=== PATIENT | male | born 1970 | race Caucasian/White ===

== ENCOUNTER 2019-02-13 10:39 | Observation (INO) ==
[2019-02-13] MEDS ORDERED: Aspirin 81 MG TAB.CHEW PO SCH (10:56)
--- NOTE | 2019-02-13 10:57 | Emergency Department Note ---
Disposition Clinical Impression: Atypical chest pain Disposition: Admitted As Inpatient Time of Disposition: 21:20 Chest Pain HPI - General Chief Complaint: ED Chest Pain Stated Complaint: Chest pain Time Seen by Provider: 02/13/19 10:45 Source: patient Mode of arrival: ambulatory Limitations: no limitations Vital Signs Reviewed: Yes Nursing Notes Reviewed: Yes - History of Present Illness HPI Narrative: 48-year-old male past medical history of coronary artery disease with stent placement approximately 5 years ago. Also history of diabetes, on lisinopril, metoprolol and Plavix presenting for one day history of sudden onset chest pain. Patient states he woke up this morning with 8 out of 10 midsternal squeezing chest pain with radiation into his jaw and teeth. Patient states he took 81 mg of aspirin this morning but has not taken any other medications for his symptoms. Pt complaint: chest pain Onset (ago): hour(s) Duration: constant, gradually worsening Onset: during rest Severity: severe Severity scale (1-10): 8 Quality: other ("Squeezing") Pain Radiation: jaw/teeth Improves with: nothing Worsens with: nothing Treatments prior to arrival chest pain: aspirin - Related Data Home Medications Medication Instructions Recorded Confirmed Aspirin [Lo-Dose Aspirin EC] 81 mg PO DAILY 09/21/17 02/13/19 Atorvastatin [Lipitor] 40 mg PO HS 02/13/19 02/13/19 Clopidogrel [Plavix] 75 mg PO DAILY 02/13/19 02/13/19 Gabapentin [Neurontin] 300 mg PO BID 02/13/19 02/13/19 Lisinopril [Zestril] 5 mg PO DAILY 02/13/19 02/13/19 Metformin HCl 1,000 mg PO BID 02/13/19 02/13/19 Metoprolol [Lopressor] 25 mg PO BID 02/13/19 02/13/19 PARoxetine HCl [Paroxetine HCl] 30 mg PO DAILY 02/13/19 02/13/19 Allergies Allergy/AdvReac Type Severity Reaction Status Date / Time No Known Allergies Allergy Verified 09/21/17 17:15 Review of Systems: Constitutional: Denies: fever, chills Cardiovascular: Admits to chest pain with radiation to his jaw/teeth Respiratory: Denies: dyspnea Gastrointestinal: Denies: abdominal pain, nausea, vomiting, diarrhea, constipation, hematemesis, melena, hematochezia Genitourinary: Denies: hematuria Musculoskeletal: Denies: back pain, neck pain Neurological: Denies: headache, weakness, numbness, paresthesias All systems ED: reviewed and negative except as stated. Review of Systems: As Per HPI Chest Pain PMH - Past Medical History Medical history: Reports: hypertension, other - Social History Smoking Status: Never smoker Alcohol use: Reports: none Physical Exam Constitutional: No acute distress, [id number], engaged to conversation, speech is fluid, answers questions appropriately Neuro: GCS 15, no overt focal neurological deficits Head: Atraumatic, normocephalic Eyes: Pupils equal, round and reactive to light, no scleral icterus, no conjunctival injection Neck: Trachea midline without deviation. Anterior neck is supple without swelling. *Chest: Symmetric chest wall rise *Heart: Cardiac rhythm and rate are regular with S1 and S2 , no S3 or S4 appreciated, no murmurs, gallops, rubs, or clicks. *Lungs: Lungs are clear to auscultation bilaterally, without accessory muscle use or prolonged expiratory phase. No wheezes, rhonchi or stridor appreciated. Abdomen: Abdomen is flat, soft to palpation, normal bowel sounds. No abdominal bruit auscultated. Non-distended, non-rigid, no organomegaly, no ascites appreciated. No pulsatile mass, no tenderness or guarding to palpation in all four quadrants, no rebound Extremities: Normal capillary refill without evidence of pedal edema, joint swelling or erythema. Pulses/motor intact in all 4 extremities. Psychiatric exam: Patient displays a normal affect and mood for the environment. No overt signs of hallucination. Integumentary: warm, dry, intact, normal color. No rash, cyanosis, diaphoresis, erythema, or pallor - General Limitations: no limitations General appearance: alert, in no apparent distress Course Course Narrative: Concern for acute coronary syndrome CBC, BMP, troponin EKG/old EKG Chest x-ray portable Aspirin and nitroglycerin for management of patient's symptoms and cardio prophylaxis We will call cardiology regarding EKG changes noted from prior. - Reevaluation(s) Reevaluation #1: Spoke with Dr. Alcantar from [facility] who recommended starting ACS heparin drip as well as nitro drip if needed for management of patient pain. Dr. Alcantar says currently not candidate for emergent heart catheterization. Admission to hospitalist medicine service for further evaluation and management of potential ACS. Vital Signs Temperature 97.7 F 02/13/19 10:41 Pulse Rate 121 02/13/19 10:41 Respiratory Rate 22 02/13/19 10:41 Blood Pressure 143/102 02/13/19 10:41 O2 Sat by Pulse Oximetry 98 02/13/19 10:41 Temperature 98.0 F 02/13/19 19:08 Pulse Rate 81 02/13/19 19:08 Respiratory Rate 20 02/13/19 19:08 Blood Pressure 117/80 02/13/19 19:08 O2 Sat by Pulse Oximetry 96 02/13/19 19:08 Oxygen Delivery Oxygen Delivery Room Air Chest Pain - MDM Narrative Medical decision making narrative: Patient states positive relief of symptoms as management here in the ED. Troponin within normal ranges Heart score 7 Laboratory and imaging otherwise unremarkable for acute pathology. Patient will be admitted hospitals medicine service for further evaluation and management of potential ACS Cardiology consulted and is following. - Lab Data Lab results reviewed: Yes I reviewed the patient's lab results. Result diagrams: 02/13/19 11:12 02/13/19 11:12 Lab Results 02/13/19 02/13/19 02/13/19 Range/Units 11:12 11:12 11:12 WBC 4.8 (4.3-11.1) K/mcL RBC 5.12 (4.19-5.50) M/mcL Hgb 14.3 (12.9-16.9) g/dL Hct 43.1 (37.5-50.1) % MCV 84.2 (83.0-100.0) fL MCH 27.9 L (28.0-33.3) pg MCHC 33.2 (31.6-35.5) g/dL RDW 12.3 (11.5-14.5) % Plt Count 242 (140-400) K/mcL MPV 9.1 L (9.4-12.4) fL Immature Gran % 0.4 (0-4) % Seg Neutrophils % 58.8 % Lymphocytes % 31.3 % Monocytes % 7.9 % Eosinophils % 1.2 % Basophils % 0.4 % Neutrophils # 2.8 (1.6-8.9) K/mcL Lymphocytes # 1.5 (0.6-4.6) K/mcL Monocytes # 0.4 (0.0-1.3) K/mcL Eosinophils # 0.1 (0.0-0.6) K/mcL Basophils # 0.0 (0.0-0.2) K/mcL PT 10.5 (9.4-12.1) Seconds INR 0.9 APTT 30.0 (26.0-36.0) Seconds Heparin Anti-Xa, Unfract 0.03 L (0.30-0.70) IU/mL Sodium 135 L (136-145) mEq/L Potassium 4.1 (3.5-5.1) mEq/L Chloride 99 (98-107) mEq/L Carbon Dioxide 25 (23-29) mEq/L BUN 20 (6-20) mg/dL Creatinine 1.05 (0.70-1.30) mg/dL Est GFR ( Amer) > 60 (> 60) Est GFR (Non-Af Amer) > 60 (> 60) BUN/Creatinine Ratio 19 (6-26) Glucose 204 H (70-105) mg/dL Calculated Osmolality 288 (280-300) Calcium 9.8 (8.6-10.3) mg/dL Troponin I < 0.03 (< 0.04) ng/mL - EKG Data EKG attestation: Yes I reviewed and interpreted this EKG. EKG results narrative: Patient EKG shows a sinus rhythm with a ventricular 119 bpm, AR interval of less than 200 ms, QR scientologist of 82 ms, QT/QTc interval 298/368 ms respectively. There is notable ST segment elevation of approximately 1 mL in aVR with reciprocal depressions noted in the lateral leads V3 4 through V6. There are no abnormal T-wave inversions, or pathologic Q waves. This EKG is significantly changed with the changes noted above from prior EKG performed on 09/13/2013. We will call cardiology for further recommendations at this time. Repeat EKG shows significantly improved ST segment elevation in aVR, ST segment depression in V4 through V6 is now not seen. There is a sinus rhythm evident with a heart rate of 80 bpm, AR interval of 184 ms, QRS duration 91 ms, QT/QTc interval 339/391 ms respectively. There are no ST segment elevations, depressions, pathologic Q waves, abnormal T-wave inversions, or any other signs of acute ischemic change. This EKG is much improved from prior EKG performed on the same date. Heart Score - Score History: Highly Suspicious EKG: Significant ST-Depression Age: 45-65 Risk Factors: Equal/Greater than 3 risk factor or history of atherosclerotic disease Troponin: Less than normal limit HEART Score Total: 7 Attestation Statement - Attestation Attestation: I, Armen Loza, examined this patient and my medical decision-making was reviewed with the MIXER RUNNER/PA/Advanced Practice Nurse/Resident Physician. I agree with the documented findings, disposition and treatment plan as described except to the extent set forth below. 48-year-old male presents emergency Department with concerns of acute onset ch est pain. Patient states symptoms started after waking, it is a dull aching pain in the left parasternal area which radiates to the jaw and left upper extremity. It is associated with shortness of breath and diaphoresis. He has a history of previous cardiac disease and has stents in place. Patient EKG did not show evidence of STEMI however it did have mild ST elevation in aVR with ST depressions in V4, V5, V6. We called the stonemason who looked at the EKGs and recommended that this was not a candidate for the catheter lab immediately. Patient will be started on heparin and admitted to the hospital for further care and evaluation.
[2019-02-13] MEDS ORDERED: *HR* Heparin 5,000 UNIT/ML VIAL IVP PRN ×2 (11:06)
[2019-02-13] MEDS ORDERED: *HR* Heparin 5,000 UNIT/ML VIAL IVP ONE (11:06)
[2019-02-13] MEDS ORDERED: Heparin 25,000 UNIT/250 ML D5W 25,000 UNIT/250 ML IV.SOLN IVC SCH (11:15)
[2019-02-13] MEDS: Nitroglycerin 0.4 MG TAB.SUBL SL PRN ×2 (11:24→11:30)
[2019-02-13 11:30] LABS: Basophils % 0.4 %; Eosinophils # 0.1 K/mcL (0.0-0.6); Eosinophils % 1.2 %; Hematocrit 43.1 % (37.5-50.1); Hemoglobin 14.3 g/dL (12.9-16.9); Immature Granulocytes % 0.4 % (0-4); Lymphocytes # 1.5 K/mcL (0.6-4.6); Lymphocytes % 31.3 %; Mean Corpuscular HGB Conc 33.2 g/dL (31.6-35.5); Mean Corpuscular Hemoglobin 27.9 pg (28.0-33.3); Mean Corpuscular Volume 84.2 fL (83.0-100.0); Mean Platelet Volume 9.1 fL (9.4-12.4); Monocytes # 0.4 K/mcL (0.0-1.3); Monocytes % 7.9 %; Neutrophils # 2.8 K/mcL (1.6-8.9); Platelet Count 242 K/mcL (140-400); Red Blood Count 5.12 M/mcL (4.19-5.50); Red Cell Distribution Width 12.3 % (11.5-14.5); Segmented Neutrophils % 58.8 %
[2019-02-13 11:38] LABS: INR 0.9; Prothrombin Time 10.5 Seconds (9.4-12.1)
[2019-02-13 11:39] LABS: Heparin anti-factor XA UFH 0.03 IU/mL (0.30-0.70)
[2019-02-13 11:51] LABS: BUN/Creatinine Ratio 19 (6-26); Blood Urea Nitrogen 20 mg/dL (6-20); Calcium 9.8 mg/dL (8.6-10.3); Carbon Dioxide 25 mEq/L (23-29); Chloride 99 mEq/L (98-107); Glucose 204 mg/dL (70-105); Osmolality,Calculated 288 (280-300); Potassium 4.1 mEq/L (3.5-5.1); Sodium 135 mEq/L (136-145); Troponin I < 0.03 ng/mL (< 0.04); eGFR For Non-African Americans > 60 (> 60)
--- NOTE | 2019-02-13 13:04 | Electrocardiograph Report ---
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
--- NOTE | 2019-02-13 14:47 | Cardiology Consult Note ---
Date of Encounter: 02/13/19 Time of Encounter: 02:10 Assessment and Plan (1) Chest pain Current Visit: Yes Status: Acute -Patient presents to the ED with the retrosternal pressure-like chest pain radiating to his jaw area -Patient has risk factors that predisposes him to CHD like diabetes, hypertension, hyperlipidemia, prior history of for stent placement about 4 years ago -Initial Troponin was negative. Serial troponins are pending. -Patient's initial EKG showed some ST -T changes aVR with reciprocal ST depression in V3 to V6 but then repeat EKG showed resolution of all the changes. There was no evidence of pathological Q waves or T-wave inversion. - Patient endorses no chest pain on my examination PLAN: -Sublingual nitro PRN for chest pain -Trend troponins -Continue heparin drip for now . - Echocardigram to rule out wall motion/valvular abnormalities -Patient has not had a stress test in the last 4 years therefore will get one . -Further management contingent upon the outcome of his stress test Qualifiers: Qualified Code(s): R07.9 - Chest pain, unspecified (2) CAD (coronary artery disease) Current Visit: Yes Status: Acute -Patient history of CAD s/p stent placement 4 years ago -Continue on ASA, beta blockers and statins Qualifiers: Qualified Code(s): I25.10 - Atherosclerotic heart disease of [place] coronary artery without angina pectoris (3) HTN (hypertension) Current Visit: Yes Status: Acute Patient has a history of hypertension Continue home medication metoprolol and lisinopril. Qualifiers: Qualified Code(s): I10 - Essential (primary) hypertension Discussion w patient/family: The assessment and plan as outlined above was discussed with the patient and/or family members who expressed understanding and agreement. All questions were answered. Thank you for involving us in the care of your patient. Please call with any questions. History of Present Illness Consult date: 02/13/19 History of present illness: Mr. Escalante is a 48 year old male with a past medical history of diabetes, hypertension, hyperlipidemia, CAD status post stent 4 years ago who presents to the ED with chest pain. Patient endorses retrosternal non- positional pressure- like chest pain radiating to his jaw area accompanied with one episode of vomiting, but he denies diaphoresis and nausea. He took 81 mg aspirin at home which show provided him some relief. He went out of the home to run some errands and was still having some chest pain which was progressively increasing therefore decided to go to the ED. Patient has a family history of MIs on his mom's side. Initial workup in the ED showed patient's initial troponin was negative. Patient was hemodynamically stable with blood pressure 143/102 (patient said that he had not taken his morning BP medications today). EKG showed ST segment elevation of 1 mm in aVR with respiratory depression in lateral leads V3 V4 and V6 without any T-wave inversion or pathological Q waves. EKG showed significantly improved ST-T segment elevation in aVR with resolution of ST segment depression in V4 to V6. He was started on ACS heparin drip and nitro drip and was sent to the floor for further management. Past Med Surg Social Fam HX - Past Medical History Medical history: hypertension, other - Social History Smoking Status: Never smoker Smokeless Tobacco Status: No Alcohol use: none Medications and Allergies Aspirin [Lo-Dose Aspirin EC] 81 mg PO DAILY 09/21/17 [History] Atorvastatin [Lipitor] 40 mg PO HS 02/13/19 [History] Clopidogrel [Plavix] 75 mg PO DAILY 02/13/19 [History] Gabapentin [Neurontin] 300 mg PO BID 02/13/19 [History] Lisinopril [Zestril] 5 mg PO DAILY 02/13/19 [History] Metformin HCl 1,000 mg PO BID 02/13/19 [History] Metoprolol [Lopressor] 25 mg PO BID 02/13/19 [History] PARoxetine HCl [Paroxetine HCl] 30 mg PO DAILY 02/13/19 [History] Allergy/AdvReac Type Severity Reaction Status Date / Time No Known Allergies Allergy Verified 09/21/17 17:15 All Systems Review: The remainder of the systems were reviewed and are negative - Constitutional Constitutional: no chills, no fever(s) - Cardiovascular Cardiovascular: chest pain at rest - Respiratory Respiratory: no dyspnea - Gastrointestinal Gastrointestinal: no abdominal pain Physical Examination Vital Signs, Last 4 Hours Pulse Resp BP Pulse Ox 02/13/19 14:16 17 114/71 02/13/19 11:03 93 139/100 97 Other: Gen.: Vitals noted. No acute distress. Alert, awake and oriented * [address], [address], and time, well developed, well-nourished resting comfortably in bed. Plea liza. HEENT: oropharynx clear, Normocephalic, atraumatic, MMM Neck: supple, no JVD, no lymphadenopathy, no carotid bruit. Cardiac: RRR, no murmur, +S1/S2, No BLE edema, PMI non-displaced Pulmonary: CTA bilaterally, no wheezes, rales or rhonchi, equal chest expansion, unlabored breathing Abdomen: soft, nontender, BS noted, no guarding non- distended. No organomegaly, no pulsatile masses, Skin: warm and dry, no visible lesions. Feels warm, clammy, no rashes, no lesions, no erythema MSK: ROM not assessed. no joint swelling noted, gait not assessed while in bed. Non tender calf or clubbing, no cyanosis/clubbing/ or edema Neuro: A&O, moves all extremities, no focal deficits, sensation intact Psych: Appropriate mood and behavior, normal speech Results 02/13/19 11:12 02/13/19 11:12 Lab Results 02/13/19 02/13/19 02/13/19 11:12 11:12 11:12 WBC 4.8 Hgb 14.3 Hct 43.1 Plt Count 242 INR 0.9 APTT 30.0 Sodium 135 L Potassium 4.1 Chloride 99 Carbon Dioxide 25 BUN 20 Creatinine 1.05 Glucose 204 H Calcium 9.8 Troponin I < 0.03 Consult Discharge Plan - Plan Referrals: Shima Stewart MD [Primary Care Provider] -
[2019-02-13] MEDS ORDERED: MOM Conc 10 ML UD.LIQ PO PRN (15:22)
[2019-02-13] MEDS ORDERED: Naloxone 0.4 MG/ML INJ IVP PRN (15:22)
[2019-02-13] MEDS ORDERED: Mag Hydrox/Al Hydrox/Simeth 30 ML UDC PO PRN (15:22)
[2019-02-13] MEDS ORDERED: traMADol 50 MG TABLET PO PRN (15:22)
[2019-02-13] MEDS ORDERED: Ondansetron 4 MG/2 ML VIAL IVP PRN (15:22)
[2019-02-13] MEDS ORDERED: *HR* Promethazine 25 MG/ML VIAL IVP PRN (15:22)
[2019-02-13] MEDS ORDERED: Acetaminophen 325 MG TABLET PO PRN (15:22)
--- NOTE | 2019-02-13 15:28 | Internal Med History&Physical ---
Date of Encounter: 02/13/19 Time of Encounter: 15:26 Internal Medicine - H&P: HPI Admitted From: Home Plans for Post Hospital Care: Home History of present illness: Mr. Escalante is a 48 year old male with a past medical history of diabetes, hypertension, hyperlipidemia, CAD status post stent 4 years ago who presents to the ED with chest pain. Patient endorses retrosternal non- positional pressure- like chest pain radiating to his jaw area accompanied with one episode of vomiting, but he denies diaphoresis and nausea. He took 81 mg aspirin at home which show provided him some relief. He went out of the home to run some errands and was still having some chest pain which was progressively increasing therefore decided to go to the ED. Patient has a family history of MIs on his mom's side. Initial workup in the ED showed patient's initial troponin was negative. Patient was hemodynamically stable with blood pressure 143/102 (patient said that he had not taken his morning BP medications today). EKG showed ST segment elevation of 1 mm in aVR with respiratory depression in lateral leads V3 V4 and V6 without any T-wave inversion or pathological Q waves. EKG showed significantly improved ST-T segment elevation in aVR with resolution of ST segment depression in V4 to V6. He was started on ACS heparin drip and nitro drip and was sent to the floor for further management. Code status discussed with pt and Full code ordered. Past Med Surg Social Fam HX - Past Medical History Medical history: diabetes, hypertension, myocardial infarction, other Psychiatric history: anxiety - Past Surgical History Surgical History: LE stent(s) Additional surgical history: hernia repain, shoulder, knee sx, feet, tonsil adenoid - Social History Smoking Status: Never smoker Smokeless Tobacco Status: Yes Alcohol use: none Drug use: none Internal Medicine - H&P: Meds Aspirin [Lo-Dose Aspirin EC] 81 mg PO DAILY 09/21/17 [History] Atorvastatin [Lipitor] 40 mg PO HS 02/13/19 [History] Clopidogrel [Plavix] 75 mg PO DAILY 02/13/19 [History] Gabapentin [Neurontin] 300 mg PO BID 02/13/19 [History] Lisinopril [Zestril] 5 mg PO DAILY 02/13/19 [History] Metformin HCl 1,000 mg PO BID 02/13/19 [History] Metoprolol [Lopressor] 25 mg PO BID 02/13/19 [History] PARoxetine HCl [Paroxetine HCl] 30 mg PO DAILY 02/13/19 [History] Allergy/AdvReac Type Severity Reaction Status Date / Time No Known Allergies Allergy Verified 09/21/17 17:15 All Systems PM: A 10-system review of systems was performed and is negative for pertinent findings except as documented above in the HPI. Review of systems: REVIEW OF SYSTEMS: CONSTITUTIONAL: No weight loss, fever, chills, weakness or fatigue. HEENT: Eyes: No visual loss, blurred vision, double vision or yellow sclerae. Ears, Nose, Throat: No hearing loss, sneezing, congestion, runny nose or sore throat. SKIN: No rash or itching. CARDIOVASCULAR: see HPI. RESPIRATORY: No shortness of breath, cough or sputum. GASTROINTESTINAL: No anorexia, nausea, vomiting or diarrhea. No abdominal pain or blood. GENITOURINARY: No dysuria, urgency, or frequency. NEUROLOGICAL: No headache, dizziness, syncope, paralysis, ataxia, numbness or tingling in the extremities. No change in bowel or bladder control. MUSCULOSKELETAL: No muscle, back pain, joint pain or stiffness. HEMATOLOGIC: No anemia, bleeding or bruising. LYMPHATICS: No enlarged nodes. No history of splenectomy. PSYCHIATRIC: No history of depression or anxiety. ENDOCRINOLOGIC: No reports of sweating, cold or heat intolerance. No polyuria or polydipsia. - Constitutional Vitals: Temp Pulse Resp BP Pulse Ox 97.7 F 93 17 114/71 97 02/13/19 10:41 02/13/19 11:03 02/13/19 14:16 02/13/19 14:16 02/13/19 11:03 General appearance: Present: A&O X 3 Exam: PHYSICAL EXAMINATION: GENERAL APPEARANCE: The patient is alert, oriented and in no acute distress. HEENT: Head is normocephalic. The sinuses are nontender. Pupils are equal and reactive. The nares are patent. Oropharynx clear without lesions. NECK: Supple without lymphadenopathy. HEART: Regular rate and rhythm. LUNGS: No crackles or wheezes are heard. ABDOMEN: Soft, nontender, nondistended with good bowel sounds heard. Inguinal area is normal. EXTREMITIES: Without cyanosis, clubbing or edema. NEUROLOGICAL: Gross nonfocal. SKIN: Warm and dry without any rash. Internal Med - H&P Results - Labs CBC & Chem 7: 02/13/19 11:12 02/13/19 11:12 Labs: Short CBC 02/13/19 Range/Units 11:12 WBC 4.8 (4.3-11.1) K/mcL Hgb 14.3 (12.9-16.9) g/dL Hct 43.1 (37.5-50.1) % Plt Count 242 (140-400) K/mcL Neutrophils # 2.8 (1.6-8.9) K/mcL BMP 02/13/19 11:12 Sodium 135 L Potassium 4.1 Chloride 99 Carbon Dioxide 25 BUN 20 Creatinine 1.05 Glucose 204 H Calcium 9.8 Cardiac Enzymes 02/13/19 Range/Units 11:12 Troponin I < 0.03 (< 0.04) ng/mL - Impressions ITS Impressions Chest X-Ray 02/13/19 10:47 IMPRESSION: No evidence of acute process. D/ / Dhruv Lam / Dhruv Lam Interpreting Provider: Dhruv Lam - Assessment and Plan (1) Chest pain Current Visit: Yes Status: Acute Assessment and plan: Typical chest pain, concerning for unstable angina. Heparin and NTG gtt started at the ED. EKG showed concerning st-t elevation on aVR and st-t depression on V4-V6 per ED report. Currently chest pain free. Continue home DAPT. ECHO and stress test in am. Cardiology following. Qualifiers: Chest pain type: unspecified Qualified Code(s): R07.9 - Chest pain, unspecified (2) Diabetes mellitus Current Visit: No Status: Chronic Assessment and plan: Hold home oral agent, started on insulin sliding scale. Qualifiers: Diabetes mellitus type: type 2 Diabetes mellitus group home insulin use: without group home use Diabetes mellitus complication status: without complication Qualified Code(s): E11.9 - Type 2 diabetes mellitus without complications (3) Hyperlipidemia Current Visit: No Status: Chronic Assessment and plan: continue statins. Qualifiers: Hyperlipidemia type: unspecified Qualified Code(s): E78.5 - Hyperlipidemia, unspecified (4) HTN (hypertension) Current Visit: No Status: Chronic Assessment and plan: well-controlled, continue current treatment. Qualifiers: Hypertension type: unspecified Qualified Code(s): I10 - Essential (primary) hypertension (5) CAD (coronary artery disease) Current Visit: No Status: Chronic Assessment and plan: same as above. Qualifiers: Coronary Disease-Associated Artery/Lesion type: [place] artery [place] vs. transplanted heart: [place] heart Associated angina: with unstable angina Qualified Code(s): I25.110 - Atherosclerotic heart disease of [place] coronary a rtery with unstable angina pectoris (6) DVT prophylaxis Current Visit: Yes Status: Acute Assessment and plan: heparin sq. - Time Spent With Patient Total time spent is greater than 50% in coordination of care (as documented) at patient's floor/unit and/or counseling patient: Greater than 35 minutes
[2019-02-13] MEDS ORDERED: *HR* Dextrose 50 % in Water (Syg) 50 ML SYRINGE IVP PRN (15:43)
[2019-02-13] MEDS ORDERED: D5% in Water 1,000 ML IVC PRN (15:43)
[2019-02-13] MEDS ORDERED: Dextrose Gel 15 GM/37.5 ML TUBE PO PRN ×2 (15:43)
[2019-02-13] MEDS: Insulin LISPRO 300 UNITS/3 ML VIAL SQ SCH ×2 (19:09→20:38)
[2019-02-13] MEDS: Gabapentin 300 MG CAPSULE PO SCH (20:42)
[2019-02-14 01:24] LABS: Basophils % 0.6 %; Eosinophils # 0.2 K/mcL (0.0-0.6); Eosinophils % 2.3 %; Hematocrit 41.8 % (37.5-50.1); Hemoglobin 13.7 g/dL (12.9-16.9); Immature Granulocytes % 0.5 % (0-4); Lymphocytes # 3.2 K/mcL (0.6-4.6); Lymphocytes % 48.3 %; Mean Corpuscular HGB Conc 32.8 g/dL (31.6-35.5); Mean Corpuscular Hemoglobin 27.9 pg (28.0-33.3); Mean Corpuscular Volume 85.1 fL (83.0-100.0); Mean Platelet Volume 8.9 fL (9.4-12.4); Monocytes # 0.6 K/mcL (0.0-1.3); Monocytes % 8.7 %; Neutrophils # 2.6 K/mcL (1.6-8.9); Platelet Count 231 K/mcL (140-400); Red Blood Count 4.91 M/mcL (4.19-5.50); Red Cell Distribution Width 12.6 % (11.5-14.5); Segmented Neutrophils % 39.6 %
[2019-02-14 01:40] LABS: Alanine Aminotransferase 36 Units/L (7-52); Albumin 4.2 g/dL (3.5-5.7); Albumin/Globulin Ratio 1.7 (1.1-2.2); Alkaline Phosphatase 47 Units/L (34-104); Aspartate Amino Transferase 20 Units/L (13-39); BUN/Creatinine Ratio 21 (6-26); Bilirubin,Total 0.3 mg/dL (0.3-1.0); Blood Urea Nitrogen 20 mg/dL (6-20); Calcium 8.8 mg/dL (8.6-10.3); Carbon Dioxide 24 mEq/L (23-29); Chloride 103 mEq/L (98-107); Chol/HDL Ratio 4.5 (0-4.9); Cholesterol 166 mg/dL (< 200); Globulin 2.5 g/dL (2.4-3.5); Glucose 123 mg/dL (70-105); HDL Cholesterol 37 mg/dL (40-59); Magnesium 2.2 mg/dL (1.6-2.6); Osmolality,Calculated 282 (280-300); Phosphorous 4.5 mg/dL (2.7-4.5); Potassium 4.3 mEq/L (3.5-5.1); Sodium 134 mEq/L (136-145); Total Protein 6.7 g/dL (6.4-8.9); Triglycerides 545 mg/dL (< 150); eGFR For Non-African Americans > 60 (> 60)
--- NOTE | 2019-02-14 10:20 | Internal Med Progress Note ---
Hospitalist Progress Note - Encounter Date of Encounter: 02/14/19 Time of Encounter: 10:17 - Subjective Interval History: PT seen and examined in the room. He has no chest pain currently. No sob, palpitation, or lightheadedness. - Exam Vitals: Temp Pulse Resp BP Pulse Ox 97.5 F L 63 18 119/69 97 02/14/19 02:35 02/14/19 02:35 02/14/19 02:35 02/14/19 02:35 02/14/19 02:35 Exam: PHYSICAL EXAMINATION: GENERAL APPEARANCE: The patient is alert, oriented and in no acute distress. HEENT: Head is normocephalic. The sinuses are nontender. Pupils are equal and reactive. The nares are patent. Oropharynx clear without lesions. NECK: Supple without lymphadenopathy. HEART: Regular rate and rhythm. LUNGS: No crackles or wheezes are heard. ABDOMEN: Soft, nontender, nondistended with good bowel sounds heard. Inguinal area is normal. EXTREMITIES: Without cyanosis, clubbing or edema. NEUROLOGICAL: Gross nonfocal. SKIN: Warm and dry without any rash. - Assessment and Plan (1) Chest pain Current Visit: Yes Status: Acute Assessment and Plan: 02/13 Typical chest pain, concerning for unstable angina. Heparin and NTG gtt started at the ED. EKG showed concerning st-t elevation on aVR and st-t depression on V4-V6 per ED report. Currently chest pain free. Continue home DAPT. ECHO and stress test in am. Cardiology following. 02/14 Stress test was abnormal, cardio following. Continue DAPT, ACEi and BB. Statin dose increased to high-intensity, Tricor added due to high TG, will monitor side effect and pt response. BP well controlled currently. (2) Diabetes mellitus Current Visit: No Status: Chronic Assessment and Plan: Hold home oral agent, started on insulin sliding scale. A1c 7.5 recently 12/2018. (3) Hyperlipidemia Current Visit: No Status: Chronic Assessment and Plan: repeat lipid panel showed high TG, LDL and low HDL. Statin dose adjusted and tricor started as discussed above. (4) HTN (hypertension) Current Visit: No Status: Chronic Assessment and Plan: well-controlled, continue current treatment. (5) CAD (coronary artery disease) Current Visit: No Status: Chronic Assessment and Plan: same as above. (6) DVT prophylaxis Current Visit: Yes Status: Acute Assessment and Plan: heparin sq. - Time Spent with Patient Total time spent is greater than 50% in coordination of care (as documented) at patient's floor/unit and/or counseling patient: Greater than 35 minutes Plan of Care Discussed with: patient Internal Medicine: Result - Labs CBC & Chem 7: 02/14/19 01:08 02/14/19 01:08 Labs: Short CBC 02/13/19 02/14/19 Range/Units 11:12 01:08 WBC 4.8 6.7 (4.3-11.1) K/mcL Hgb 14.3 13.7 (12.9-16.9) g/dL Hct 43.1 41.8 (37.5-50.1) % Plt Count 242 231 (140-400) K/mcL Neutrophils # 2.8 2.6 (1.6-8.9) K/mcL BMP 02/13/19 02/14/19 11:12 01:08 Sodium 135 L 134 L Potassium 4.1 4.3 Chloride 99 103 Carbon Dioxide 25 24 BUN 20 20 Creatinine 1.05 0.97 Glucose 204 H 123 H Calcium 9.8 8.8 Cardiac Enzymes 02/13/19 02/13/19 02/14/19 Range/Units 11:12 17:56 01:08 Troponin I < 0.03 < 0.03 < 0.03 (< 0.04) ng/mL Liver Function 02/14/19 Range/Units 01:08 Total Bilirubin 0.3 (0.3-1.0) mg/dL AST 20 (13-39) Units/L ALT 36 (7-52) Units/L Alkaline Phosphatase 47 (34-104) Units/L Albumin 4.2 (3.5-5.7) g/dL - ABG Interpretation ABG results: PT/INR, D-dimer PT 10.5 Seconds (9.4-12.1) 02/13/19 11:12 - Impressions Impressions Chest X-Ray 02/13/19 10:47 IMPRESSION: No evidence of acute process. D/ / Dhruv Lam / Dhruv Lam Interpreting Provider: Dhruv Lam Consult Discharge Plan - Plan Referrals: Shima Stewart MD [Primary Care Provider] - (Appointment has been requested. Our offices will call with an appointment time and date.) (1) Chest pain Qualifiers: Chest pain type: unspecified Qualified Code(s): R07.9 - Chest pain, unspec ified (2) Diabetes mellitus Qualifiers: Diabetes mellitus type: type 2 Diabetes mellitus manager long term care insulin use: without fpc use Diabetes mellitus complication status: without complication Qualified Code(s): E11.9 - Type 2 diabetes mellitus without complications (3) Hyperlipidemia Qualifiers: Hyperlipidemia type: unspecified Qualified Code(s): E78.5 - Hyperlipidemia, unspecified (4) HTN (hypertension) Qualifiers: Hypertension type: unspecified Qualified Code(s): I10 - Essential (primary) hypertension (5) CAD (coronary artery disease) Qualifiers: Coronary Disease-Associated Artery/Lesion type: [place] artery [place] vs. tr ansplanted heart: [place] heart Associated angina: with unstable angina Qualified Code(s): I25.110 - Atherosclerotic heart disease of [place] coronary artery with unstable angina pectoris
[2019-02-14] MEDS: Fenofibrate 54 MG TABLET PO SCH (11:52)
[2019-02-14] MEDS: Gabapentin 300 MG CAPSULE PO SCH ×2 (11:52→20:30)
[2019-02-14] MEDS: Aspirin Enteric Coated 81 MG Tablet PO SCH (11:52)
--- NOTE | 2019-02-14 13:51 | Pre-Sedation Evaluation ---
Pre-sedation evaluation - Pre-sedation checklist Date of procedure: 02/14/19 Procedure: LHC Recent Vitals: Last Vital Signs Temp 98.5 F 02/14/19 10:23 Pulse 86 02/14/19 10:23 Resp 18 02/14/19 10:23 BP 132/86 02/14/19 10:23 Pulse Ox 99 02/14/19 10:23 ASA Classification *see protocol: CLASS II-Mild systemic disease Cardiac Registry (Cardio Only) - Functional Capacity Functional Capacity: >=4 METS without symptoms - Clincal Frailty Scale Clinical Frailty Scale: Managing Well
[2019-02-14] MEDS ORDERED: 0.9 % Sodium Chloride 1,000 ML ONE ×2 (15:01→15:06)
[2019-02-14] MEDS ORDERED: ISOVUE-370 200 ML INFUS..BTL ONE (15:02)
[2019-02-14] MEDS ORDERED: Nitroglycerin 1,000 MCG/10 ML VIAL IV ONE (15:02)
[2019-02-14] MEDS ORDERED: *HR* Heparin 10,000 UNIT/10 ML VIAL ONE (15:02)
[2019-02-14] MEDS ORDERED: Heparin 1,000 UNITS/500 mL 500 ML ONE (15:02)
[2019-02-14] MEDS ORDERED: *HR* FentaNYL (PF) 100 MCG/2 ML VIAL ONE (15:23)
[2019-02-14] MEDS ORDERED: *HR* Midazolam HCl 2 MG/2 ML VIAL ONE (15:23)
[2019-02-14] MEDS ORDERED: Tirofiban 12.5 MG/250ML 12.5 MG/250 ML BAG ONE (15:38)
[2019-02-14] MEDS ORDERED: *HR* Atropine Sulfate 1 MG/10 ML SYRINGE ONE (15:44)
[2019-02-14] MEDS ORDERED: Tirofiban 12.5 MG/250ML 12.5 MG/250 ML BAG IVC SCH (16:15)
--- NOTE | 2019-02-14 16:39 | Invasive Diagnostic Lab Proc ---
Name: Suhas Escalante Date of Study: 02/14/2019 Date: 1970 Ht: 68.1in Medical Record#: [id number] Age: 48 Wt: 234.57lb Gender: Male BSA: 2.19 Order #: [id number] BMI: 35.55 Physicians Procedure Physician: Sera Avina Referring MD: Referring MD: Staff Name Position Time In Talon Mack RN Monitor 03:20 PM Marcela Rush RN Nailer Machine 03:20 PM Sean Barraza RT (R) Scrub 03:20 PM Nancy Mcfadden RT (R) Scrub 03:20 PM Indications Indication Abnormal Test - Stress Procedures Performed Procedure L HRT ARTERY/VENTRICLE ANGIO PRQ CARD TRAN STENT W/ANGIO 1 VSL PRQ CARD TRAN STENT W/ANGIO 1 VSL Pre-Procedure Checklist Informed consent is complete signed and on chart. H&P is on chart. ID band is on and ID verified with patient. Patient NPO for procedure The procedure was described for the patient and questions were answered. Blood Pressure: 145/92 ECG is on chart. Rhythm: NSR Plan of Care Patient will tolerate the procedure without complications. Adequate level of comfort will be maintained. Hemodynamics will remain stable Patient will recover from procedure without complications. Respiratory function will be maintained. Cardiac rhythm will remain stable. Patient temperature will be maintained. Patient and/or family have verbalized understanding of the procedure. Patient Education Intravenous Access Time IV Size Location DC'd Fluid/Drip Rate Units RN 18g 1 1/4" Peripheral-Lock On Arrival Lt Antecubital 0.9NaCl 50 ml/hr Allergies NKDA No Known Allergies Vital Signs Time BP (mmHg) HR (bpm) O2 Sat. RR (bpm) LOC 03:28 PM / % 5 = Fully awake and oriented or at pre-proc level 03:28 PM / % 4 = Oriented but drowsy 03:43 PM / % 4 = Oriented but drowsy 03:23 PM 145 / 92 77 97 % 13 03:28 PM 131 / 77 82 100 % 11 03:33 PM 121 / 75 82 100 % 12 03:38 PM 125 / 78 88 96 % 11 03:43 PM 124 / 80 86 97 % 26 03:48 PM 121 / 79 96 97 % 11 03:53 PM 124 / 73 89 97 % 12 03:58 PM 121 / 79 84 98 % 12 04:03 PM 122 / 75 89 94 % 15 04:08 PM 122 / 80 83 97 % 13 Procedural Medications Time Medication Dose Units Method Given By 03:28 PM Oxygen 2 L/min nasal cannula Nancy Mcfadden RT (R) 03:31 PM Versed 1 mg Intravenous Marcela Rush RN 03:31 PM Fentanyl 50 mcg Intravenous Marcela Rush RN 03:33 PM Lidocaine 2% 18 ml Subcutaneous Moussa 03:35 PM Versed 0.5 mg Intravenous Marcela Rush RN 03:35 PM Fentanyl 25 mcg Intravenous Marcela Rush RN 03:39 PM Aggrastat Bolus: 54 ml Intravenous Marcela Rush RN 03:40 PM Aggrastat 12.5mg/250ml 19.5 ml Intravenous Marcela Rush RN 03:43 PM Heparin 5000 units Intravenous Marcela Rush RN 03:49 PM Versed 0.5 mg Intravenous Marcela Rush RN 04:01 PM Nitroglycerin 100 mcg Intracoronary MoussaRadha MD 04:15 PM Plavix 150 mg Orally Marcela Rush RN ASA Classification: CLASS II- Mild systemic disease (i.e. well-controlled diabetes, hypertension, asthma, cigarette smoking) Gilma Score Preprocedure Postprocedure Activity 2- Moves 4 extremities sustained head lift Activity 2- Moves 4 extremities sustained head lift Circulation 2- SBP +/= 20 points of pre-anesthetic level Circulation 2- SBP +/= 20 points of pre-anesthetic level Consciousness 2- Awake and alert oriented x 3 Consciousness 2- Awake and alert oriented x 3 O2 Saturation 2- Able to maintain O2 satruation of 92% on room air O2 Saturation 2- Able to maintain O2 satruation of 92% on room air Respiratory 2- Able to deep breathe and cough well Respiratory 2- Able to deep breathe and cough well Total Score 10 Total Score 10 Contrast Agent: Isovue Diagnostic Contrast: 145 ml Total Contrast: 145 ml Fluoro Dose: 33 mGy Activated Clotting Time Time Seconds to Clot 03:42 PM 134 04:08 PM 250 Procedure Log Time Note Enter By 03:20 PM Marcela Rush RN Position: Nailer Machine Time in: 15:20 [email or web address] 03:20 PM Sean Barraza RT (R) Position: Scrub Time in: 15:20 don 03:20 PM 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 Informed consent was obtained. oparker 03:22 PM CathStat 03:22 PM Vitals capture started with the following parameters, Patient=Adult, Interval=5 min, Initial Snyjeqfi=167 mmHg, Deflation Rate=5 mmHg, Cuff placed on Left Arm 03:23 PM HR=77 bpm, EONO=706/92 mmhg, SpO2=97 %, Resp=13 B/min, Comment=NSR 03:27 PM Patient charges- Angio tray pack, Navilyst 3mm J, Pulse Oximetry and ACIST tubing and transducer oparker 03:28 PM Hair removed from procedure site in holding area using clippers. Bilateral groin prepped with Chloraprep by Nacny Mcfadden RT (R), then patient was draped. Skin intact. oparker 03:28 PM HR=82 bpm, JWFE=399/77 mmhg, GnJ5=907.0 %, Resp=11 B/min, EtCO2=38 mmHg, Comment=NSR 03:28 PM Time: 15:28LOC: 5 = Fully awake and oriented or at pre-proc level oparker 03:28 PM Time: 15:28 Patient comfortable and pain free: Yes oparker 03:29 PM Time: 15:28 Oxygen on at 2 L/min per nasal cannula by Nancy Mcfadden RT (R) oparker 03:29 PM ASA Class CLASS II- Mild systemic disease (i.e. well-controlled diabetes, hypertension, asthma, cigarette smoking) oparker 03:29 PM Recorded ECG: HR=83 Condition=Condition 1 03:30 PM Pressure channel 1 zeroed. 03:31 PM Time: 15:31 Versed 1 mg Intravenous Given by Marcela Rush RN opajudy 03:31 PM Time: 15:31 Fentanyl 50 mcg Intravenous Given by Marcela Rush RN opajudy 03:32 PM Time out was performed according to hospital policy. Conscious sedation and anesthesia was achieved (see medication log with in this report above) oparker 03:33 PM Time: 15:33 18 ml Lidocaine 2% to right groin Subcutaneous Given by Sera oparker 03:33 PM HR=82 bpm, IFTQ=054/75 mmhg, TwX0=595.0 %, Resp=12 B/min, EtCO2=39 mmHg, Comment=NSR 03:33 PM Micro-Introducer Kit utilized for sheath placement oparker 03:33 PM Access obtained by percutaneous puncture. 6Fr 10cm [place] sheath placed in right Femoral artery. [id number] oparker 03:35 PM Time: 15:35 Versed 0.5 mg Intravenous Given by Marcela Rush RN oparker 03:35 PM Time: 15:35 Fentanyl 25 mcg Intravenous Given by Marcela Rush RN oparker 03:36 PM 0.035 145cm Navilyst 3mmJ wire [id number] oparker 03:36 PM 5Fr FR 4 catheter inserted over the wire DNC oparker 03:36 PM RCA angiography performed in multiple views. oparker 03:37 PM Catheter removed oparker 03:37 PM 5Fr FL 4 catheter inserted over the wire DNC oparker 03:37 PM LCA angiography performed in multiple views. oparker 03:38 PM HR=88 bpm, JIND=380/78 mmhg, SpO2=96.0 %, Resp=11 B/min, EtCO2=43 mmHg 03:40 PM Time: 15:39 Aggrastat Bolus: 54 ml Intravenous Given by Marcela Rush RN Gibson pump oparker 03:40 PM Time: 15:40 Aggrastat 12.5mg/250ml 19.5 ml Intravenous Given by Marcela Rush RN Gibson pump oparker 03:41 PM Catheter removed oparker 03:41 PM 5Fr Pigtail catheter inserted over the wire DNC oparker 03:42 PM At 15:42 the ACT was 134 seconds. oparker 03:42 PM Catheter removed, unable to cross oparker 03:42 PM Inflation device was opened. oparker 03:43 PM .014 [employer] 190cm guide wire across target lesion- successful. reused? No oparker 03:43 PM HR=86 bpm, PPFH=721/80 mmhg, SpO2=97.0 %, Resp=26 B/min, EtCO2=41 mmHg, Comment=NSR 03:43 PM Time: 15:43 Heparin 5000 units Intravenous Given by Marcela Rush RN oparker 03:43 PM Recorded Pressure: Ao, HR=87, Condition=Condition 1 (Aorta) Ao 105/75/91 03:43 PM Time: 15:28LOC: 4 = Oriented but drowsy oparker 03:43 PM Time: 15:28 Patient comfortable and pain free: Yes oparker 03:44 PM 6Fr JR 4 [place] Bright-Tip guide catheter was used to cannulate the PCI vessel successfully. reused? No oparker 03:45 PM 2.0 mm x 20 mm Emerge Monorail balloon across target lesion- successful. reused? No oparker 03:45 PM Balloon inflated @ 6 mai for 7 seconds oparker 03:47 PM Balloon catheter removed intact. oparker 03:47 PM 4.0mm x 20mm Synergy drug-eluting stent across target lesion- successful Lot #[id number] oparker 03:47 PM Stent deployed @ 7 mai for 8 seconds oparker 03:48 PM Stent deployed @ 14 mai for 12 seconds oparker 03:48 PM Recorded Pressure: Ao, HR=97, Condition=Condition 1 (Aorta) Ao 105/88/97 03:48 PM HR=96 bpm, FAQW=944/79 mmhg, SpO2=97.0 %, Resp=11 B/min, EtCO2=40 mmHg, Comment=NSR 03:48 PM Stent deployed @ 14 mai for 14 seconds oparker 03:49 PM Time: 15:49 Versed 0.5 mg Intravenous Given by Marcela Rush RN oparker 03:51 PM Stent delivery system removed intact. oparker 03:52 PM 4.5 mm x 12 mm Emerge Monorail balloon across target lesion- successful. reused? No oparker 03:52 PM Balloon inflated @ 16 mai for 4 seconds oparker 03:52 PM Balloon inflated @ 16 mai for 4 seconds oparker 03:53 PM Guide wire removed intact. oparker 03:53 PM Balloon catheter removed intact. oparker 03:53 PM HR=89 bpm, VEWP=084/73 mmhg, SpO2=97.0 %, Resp=12 B/min, EtCO2=41 mmHg, Comment=NSR 03:54 PM .014 [employer] 190cm guide wire across target lesion- successful. reused? Yes oparker 03:55 PM 6Fr XB3.5 [place] Bright-Tip guide catheter was used to cannulate the PCI vessel successfully. reused? No oparker 03:57 PM 2.0 mm x 20 mm Emerge Monorail balloon across target lesion- successful. reused? Yes oparker 03:58 PM HR=84 bpm, QXSR=943/79 mmhg, SpO2=98.0 %, Resp=12 B/min, EtCO2=42 mmHg, Comment=NSR 03:58 PM Balloon inflated @ 6 mai for 5 seconds oparker 03:58 PM Balloon inflated @ 6 mai for 5 seconds oparker 03:58 PM Recorded Pressure: Ao, HR=87, Condition=Condition 1 (Aorta) Ao 111/80/95 03:58 PM Time: 15:43LOC: 4 = Oriented but drowsy oparker 03:58 PM Time: 15:43 Patient comfortable and pain free: Yes oparker 03:59 PM Balloon catheter removed intact. oparker 04:00 PM 2.5mm x 16mm Synergy drug-eluting stent across target lesion- successful Lot #[id number] oparker 04:00 PM Stent deployed @ 11 mai for 6 seconds oparker 04:00 PM Stent deployed @ 14 mai for 4 seconds oparker 04:01 PM Guide wire removed intact. oparker 04:01 PM Stent delivery system removed intact. oparker 04:01 PM Guide catheter removed intact. oparker 04:01 PM Time: 16:01 Nitroglycerin 100 mcg Intracoronary Given by Radha Zamora MD oparker 04:03 PM HR=89 bpm, CDNN=836/75 mmhg, SpO2=94.0 %, Resp=15 B/min, Comment=NSR 04:04 PM Lesion found in Proximal LAD. Pre Stenosis: 50 Pre MED Flow: 3: Complete and Brisk Flow/Perfusion oparker 04:04 PM Lesion found in Mid RCA. Pre Stenosis: 95 Pre MED Flow: 2: Partial Flow/Perfusion (> 1 but < 3) oparker 04:04 PM Lesion found in Mid LAD. Pre Stenosis: 80 Pre MED Flow: 3: Complete and Brisk Flow/Perfusion oparker 04:05 PM Procedure completed at 16:05 02/14/2019 oparker 04:06 PM Did you address MED flow and Dominance? YesCoronary Dominance: right oparker 04:06 PM Estimated Blood Loss: minimal oparker 04:06 PM Post ECG NSR oparker 04:06 PM Post Blood Pressure 122/75 oparker 04:07 PM 16:07 Post Pulses Bilateral DP 2+ oparker 04:07 PM Isovue 370 - 200ml,1 Bottle(s) used. oparker 04:08 PM HR=83 bpm, GTWF=724/80 mmhg, SpO2=97.0 %, Resp=13 B/min, Comment=NSR 04:08 PM Sign out completed: Radiation Dose 449.04 mGy, 32.9 Gy/cm2 Fluoro Time: 9.2 Isovue 370 - 200ml contrast 145 ml given by Sera. Complications: None. 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 Sedation minutes 34. Cardiac Rehab Consult needed: No. Confirmed administered medications: Yes oparker 04:08 PM At 16:08 the ACT was 250 seconds. oparker 04:09 PM Did you address MED flow and Dominance? YesCoronary Dominance: right oparker 04:09 PM Arterial sheath pulled, Angio-seal closure device used and was Successful [id number] S/N. oparker 04:09 PM Information taught Cardiac Cath, Angioseal, and PCI oparker 04:10 PM Education needs Procedure, Plan of Care, and Disease Process oparker 04:10 PM Learning barriers :None oparker 04:10 PM Education Methods Verbal oparker 04:10 PM Education evaluation Able to repeat information oparker 04:10 PM Site status No bleeding/hematoma - Rt Groin as reported by Sean Barraza RT (R) at 16:10 oparker 04:10 PM Opsite applied oparker 04:10 PM No family to see at this time oparker 04:11 PM Procedure start 15:32 oparker 04:12 PM Report given to Anjali FLOWERS Pt taken to Room #22. 16:12 oparker 04:16 PM Time: 16:15 Plavix 150 mg Orally Given by Marcela Rush RN oparker 04:23 PM Proximal Left Anterior Descending Coronary Artery with 50% stenosis. If graft is supplying this territory, 0 % stenosis. oparker 04:23 PM Mid/Distal Left Anterior Descending Coronary Artery and diagonal branches with 80% stenosis. If graft is supplying this area, 0 % stenosis oparker 04:23 PM Right Coronary, Right Posterior Descending Arteries with Right Posterolateral and Acute Marginal branches with 95 % stenosis. If graft is supplying this area, 0 % stenosis oparker Complications Complication None Hemodynamics Pressures Site Systolic/A Wave Diastolic/V Wave Mean AO 105 75 91 AO 105 88 97 AO 111 80 95 Post Procedure Information Blood Pressure: 122/75 mmHg Rhythm: NSR Post procedural instructions were given Closure Device Time Device Success/Fail Angio-Seal VIP Successful Site Checks Time Location Status Staff Sheath In? Note 04:10 PM Rt Groin No bleeding/hematoma Sean Barraza RT (R) Pulses Time Site Pre-Procedure Post-Procedure Note 4:07:00 PM Bilateral DP 2+ Updated by Talon Mack RN on 02/14/2019 4:28:50 PM electronically signed on 02/14/2019 4:29:17 PM with status of Final
[2019-02-14] MEDS: Insulin LISPRO 300 UNITS/3 ML VIAL SQ SCH ×2 (16:56→20:30)
[2019-02-15 03:44] LABS: Hematocrit 40.5 % (37.5-50.1); Hemoglobin 13.4 g/dL (12.9-16.9); Mean Corpuscular HGB Conc 33.1 g/dL (31.6-35.5); Mean Corpuscular Hemoglobin 28.2 pg (28.0-33.3); Mean Corpuscular Volume 85.3 fL (83.0-100.0); Mean Platelet Volume 9.2 fL (9.4-12.4); Platelet Count 236 K/mcL (140-400); Red Blood Count 4.75 M/mcL (4.19-5.50); Red Cell Distribution Width 12.4 % (11.5-14.5)
[2019-02-15 03:50] LABS: BUN/Creatinine Ratio 17 (6-26); Blood Urea Nitrogen 15 mg/dL (6-20); Calcium 8.5 mg/dL (8.6-10.3); Carbon Dioxide 22 mEq/L (23-29); Chloride 106 mEq/L (98-107); Glucose 160 mg/dL (70-105); Osmolality,Calculated 288 (280-300); Potassium 4.7 mEq/L (3.5-5.1); Sodium 137 mEq/L (136-145); eGFR For Non-African Americans > 60 (> 60)
[2019-02-15 07:44] VITALS: BP 115/79
[2019-02-15] MEDS: Insulin LISPRO 300 UNITS/3 ML VIAL SQ SCH (08:31)
[2019-02-15] MEDS: Gabapentin 300 MG CAPSULE PO SCH (08:32)
[2019-02-15] MEDS: Aspirin Enteric Coated 81 MG Tablet PO SCH (08:32)
[2019-02-15] MEDS: Fenofibrate 54 MG TABLET PO SCH (08:32)
--- NOTE | 2019-02-15 09:45 | Discharge Summary ---
- NOTES TO OUTPATIENT PROVIDER Notes to Outpatient Provider: f/u with PCP within a weeek. f/u with cardiology within 2-3 week. Orders not resulted at time of discharge: Pending orders 02/13/19 15:15 NM elodia perf SPECT multi [NM] Routine 02/14/19 14:10 CL Cardiac Catheterization [CL] Routine 02/14/19 16:11 ECG 12 lead ECG [ECG] Stat 02/15/19 06:00 ECG 12 lead ECG [ECG] AM 0600 Date of Encounter: 02/15/19 Time of Encounter: 09:40 - Discharge Diagnosis (1) CAD (coronary artery disease) Priority: Primary Status: Acute Qualifiers: Coronary Disease-Associated Artery/Lesion type: [place] artery [place] vs. transplanted heart: [place] heart Associated angina: with unstable angina Qualified Code(s): I25.110 - Atherosclerotic heart disease of [place] coronary artery with unstable angina pectoris (2) Chest pain Priority: Primary Status: Acute Qualifiers: Chest pain type: unspecified Qualified Code(s): R07.9 - Chest pain, unspeci fied (3) Diabetes mellitus Priority: Secondary Status: Chronic Qualifiers: Diabetes mellitus type: type 2 Diabetes mellitus care home insulin use: without care home use Diabetes mellitus complication status: without complication Qualified Code(s): E11.9 - Type 2 diabetes mellitus without complications (4) Hyperlipidemia Priority: Secondary Status: Chronic Qualifiers: Hyperlipidemia type: unspecified Qualified Code(s): E78.5 - Hyperlipidemia, unspecified (5) HTN (hypertension) Priority: Secondary Status: Chronic Qualifiers: Hypertension type: unspecified Qualified Code(s): I10 - Essential (primary) hypertension (6) DVT prophylaxis Priority: Primary Status: Acute Hospital course: Mr. Escalante is a 48 year old male with a past medical history of diabetes, hypertension, hyperlipidemia, CAD status post stent 4 years ago who presents to the ED with chest pain. Patient endorses retrosternal non- positional pressure- like chest pain radiating to his jaw area accompanied with one episode of vomiting, but he denies diaphoresis and nausea. He took 81 mg aspirin at home which show provided him some relief. He went out of the home to run some errands and was still having some chest pain which was progressively increasing therefore decided to go to the ED. Patient has a family history of MIs on his mom's side. Initial workup in the ED showed patient's initial troponin was negative. EKG showed ST segment elevation of 1 mm in aVR with depression in leads V3 V4 and V6 without any T-wave inversion or pathological Q waves. He was started on ACS heparin drip and nitro drip and was sent to the floor for further management. Further tests showed negative troponin both recess, unremarkable echocardiogram with normal ejection fraction. However, nuclear stress test showed positive ischemic change on the mid inferior wall. Patient underwent left cardiac catheterization on the same day and 2 stents was placed. Medical management including aggressive risk factors modification was discussed with patient. Lipid panel showed elevated triglycerides, LDL, and the low HDL. Statin dose was increased to high intensity. TriCor was introduced. Diet control and life style modification again was discussed with patient and family. Recent hemoglobin hemoglobin A1c was 7.5, patient currently on metformin 1000 mg twice a day. Patient was instructed to continue following up with PCP in terms of diabetic management with the goal of A1c around 6.5. On the discharge today, they should vital signs were stable, he is chest pain- free. He will be discharged home today, he will continue follow-up with PCP and the delicatessen slicer as scheduled. Discharge discussed with: patient Time spent discussing smoking cessation with patient: more than 10 minutes - Time Spent with Patient Total time spent providing and/or coordinating discharge services: Time spent: Greater than 30 minutes - Discharge Medications Prescriptions: New Atorvastatin [Lipitor] 80 mg PO HS tablet Fenofibrate [Tricor] 54 mg PO DAILY #30 tablet Continued Aspirin [Lo-Dose Aspirin EC] 81 mg PO DAILY Clopidogrel [Plavix] 75 mg PO DAILY Gabapentin [Neurontin] 300 mg PO BID Lisinopril [Zestril] 5 mg PO DAILY Metformin HCl 1,000 mg PO BID Metoprolol [Lopressor] 25 mg PO BID PARoxetine HCl [Paroxetine HCl] 30 mg PO DAILY Discontinued Atorvastatin [Lipitor] 40 mg PO HS Home Medications: Aspirin [Lo-Dose Aspirin EC] 81 mg PO DAILY 09/21/17 [History] Clopidogrel [Plavix] 75 mg PO DAILY 02/13/19 [History] Gabapentin [Neurontin] 300 mg PO BID 02/13/19 [History] Lisinopril [Zestril] 5 mg PO DAILY 02/13/19 [History] Metformin HCl 1,000 mg PO BID 02/13/19 [History] Metoprolol [Lopressor] 25 mg PO BID 02/13/19 [History] PARoxetine HCl [Paroxetine HCl] 30 mg PO DAILY 02/13/19 [History] Atorvastatin [Lipitor] 80 mg PO HS tablet 02/15/19 [Rx] Fenofibrate [Tricor] 54 mg PO DAILY #30 tablet 02/15/19 [Rx] Allergies/Adverse Reactions: Allergy/AdvReac Type Severity Reaction Status Date / Time No Known Allergies Allergy Verified 09/21/17 17:15 Date of admission: 02/13/19 13:29 Primary care physician: Shima Stewart Consults: 02/13/19 13:33 Consult to Cardiology [CONS] Stat Comment: Consulting Provider: Cardiology Shauna Reason for Consult: Chest pain Time Notified: 13:33 Call Completed: Yes 02/14/19 16:11 Consult to Cardiac Rehabilitation-Phase1 [CONS] Routine Comment: Reason for Consult: post op PCI Call Completed: Yes Anticipated date of discharge: 02/15/19 - Constitutional Vitals: Temp Pulse Resp BP Pulse Ox 97.7 F 74 18 115/79 97 02/15/19 07:44 02/15/19 07:44 02/15/19 07:44 02/15/19 07:44 02/15/19 07:44 General appearance: Present: A&O X 3 Exam: PHYSICAL EXAMINATION: GENERAL APPEARANCE: The patient is alert, oriented and in no acute distress. HEENT: Head is normocephalic. The sinuses are nontender. Pupils are equal and reactive. The nares are patent. Oropharynx clear without lesions. NECK: Supple without lymphadenopathy. HEART: Regular rate and rhythm. LUNGS: No crackles or wheezes are heard. ABDOMEN: Soft, nontender, nondistended with good bowel sounds heard. Inguinal area is normal. EXTREMITIES: Without cyanosis, clubbing or edema. NEUROLOGICAL: Gross nonfocal. SKIN: Warm and dry without any rash. - Patient Status Disposition: Home, Self-Care Condition: Fair Functional capacity at discharge: independent ambulation Overall status at discharge: patient is progressing back to baseline - Discharge Instructions Instructions: Fenofibrate (By mouth) Follow Up With: Shima Stewart MD [Primary Care Provider] - 02/19/19 9:45 am (Follow up has been requested) Additional Instructions: RISK FACTORS: STOP SMOKING: If you smoke, STOP. Smoking or tobacco use significantly increases your risk of heart disease because nicotine causes the arteries to narrow or constrict. It also causes fats to stick to the artery. Your chances of having a heart attack are greatly increased if you continue to smoke. For more information, call the education line for smoking cessation 6-489-YLXIZGP EAT A LOW FAT/CHOLESTEROL/SODIUM DIET: This diet may help reduce your chances of having a heart attack. LIFTING: Avoid lifting anything more than 10 pounds for 5-7 days Prior to straining, laughing, sneezing and/or coughing, apply manual pressure directly over insertion site. ACTIVITY: You may walk or climb stairs as tolerated You can resume sexual activity as tolerated In general, you are encouraged to engage in a minimum of 30 minutes or more of moderate intensity physical activity, such as brisk walking, daily or at least 3-4 times weekly BATHING Do not submerge the site into water (bath tub, hot tub, swimming pool) for 1 week. This can be a source for infection into the blood stream. You may shower after 24 hours SITE CARE: After 24 hours, you may remove the dressing and leave the site open to air. Keep the site clean and dry. Clean gently and pat dry. You can expect bruising and tenderness that gradually resolve within a week or two. Return to work as instructed per your physician Resume driving as instructed per physician Keep all scheduled follow up appointments Resume medications as instructed IMPORTANT: If prescribed a Platelet Aggregation Inhibitor such as, Plavix, Brilinta or Effient: Duration of therapy is minimum one year These medications are often used in combination with Aspirin in prevention of future heart attacks Never discontinue unless consult with your Educational Psychology Professor STROKE (CVA) Risk factors for a stroke are: Age, cigarette smoking, diabetes, excessive alcohol consumption, family history, high blood pressure, overweight, physical inactivity, prior stroke, heart attack, diagnosis of carotid artery stenosis or other artery disease. Warning signs: Sudden numbness or weakness of the face, arm or leg; especially on one side of the body, sudden confusion, trouble speaking or understanding, sudden trouble seeing in one or both eyes, sudden trouble walking, dizziness, loss of balance or coordination, sudden severe headache with no cause. Call 911 or go to the Emergency Room. CONGESTIVE HEART FAILURE: If you have been diagnosed with Congestive Heart Failure (CHF) and your symptoms return, make an appointment with your physician Weigh yourself daily. Notify your physician if you have a weight gain of two or more pounds in one day or five or more pounds in one week. If you experience any difficulty breathing, please call 911 BLEEDING: Although the risk of bleeding is minimal, it can happen. If you have any bleeding from the site, apply firm pressure above the puncture site for 10-15 minutes. If the bleeding does not stop, continue manual pressure and call 911 Contact your physician if: You develop a fever greater than 101 degrees Fahrenheit Your site becomes reddened or has any drainage You have an increase in pain or burning at the site or if a large knot forms at the site. If you experience chest pain, shortness of breath, dizziness, or extreme tiredness, stop the activity and rest. Please notify your physicians office if you experience any of these symptoms and they are not relieved by rest please call 911! - Diet and Activity Activity: increase activity as tolerated Diet: diabetic diet, low fat, low cholesterol, low salt diet
--- NOTE | 2019-02-15 11:43 | Cardiology Progress Note ---
Date of Encounter: 02/15/19 Time of Encounter: 10:15 Assessment and Plan (1) Chest pain Status: Acute -Patient presents to the ED with the retrosternal pressure-like chest pain radi ating to his jaw area -Patient has risk factors that predisposes him to CHD like diabetes, hyperte nsion, hyperlipidemia, prior history of for stent placement about 4 years ago -Initial serial Troponin were negative. -Patient's initial EKG in the ED showed some ST -T changes aVR with reciprocal ST depression in V3 to V6 but then repeat EKG showed resolution of all the changes. There was no evidence of pathological Q waves or T-wave inversion. - 02/14/2019 nuclear stress test was positive for medium-sized reversible perfusion defect which was moderate in intensity in the midinferior segment -Patient is status post a left heart catheterizatin with placement of 2 stents. -Patient was chest pain free on my physical exam. PLAN: -Patient to continue dual antiplatelet therapy for 1 year -patient follow-up with cardiology as an outpatient. Qualifiers: Chest pain type: unspecified Qualified Code(s): R07.9 - Chest pain, unspecified (2) CAD (coronary artery disease) Status: Acute -Patient history of CAD s/p stent placement 4 years ago -Continue on ASA, plavix, beta blockers and statins Qualifiers: Coronary Disease-Associated Artery/Lesion type: [place] artery [place] vs. transplanted heart: [place] heart Associated angina: with unstable angina Qualified Code(s): I25.110 - Atherosclerotic heart disease of [place] coronary artery with unstable angina pectoris (3) HTN (hypertension) Status: Chronic Patient has a history of hypertension Continue home medication metoprolol and lisinopril. Qualifiers: Hypertension type: unspecified Qualified Code(s): I10 - Essential (primary) hypertension Discussion w patient/family: The assessment and plan as outlined above was discussed with the patient and/or family members who expressed understanding and agreement. All questions were answered. Thank you for involving us in the care of your patient. Please call with any questions. Subjective Principal diagnosis: chest pain Interval history: Patient is currently status post left heart catheter with placement of 2 stents. Patient tolerated the procedure very well. This morning he endorses no chest pain, dyspnea, PND or orthopnea. Objective Vital Signs, Last 4 Hours Temp Pulse Resp BP Pulse Ox 05/17/19 07:44 97.7 F 74 18 115/79 97 Other: Gen.: Vitals noted. No acute distress. Alert, awake and oriented * [address], and time, well developed, well-nourished resting comfortably in bed. Pleasant. HEENT: oropharynx clear, Normocephalic, atraumatic, MMM Neck: supple, no JVD, no lymphadenopathy, no carotid bruit. Cardiac: RRR, no murmur, +S1/S2, No BLE edema, PMI non-displaced Pulmonary: CTA bilaterally, no wheezes, rales or rhonchi, equal chest expansion, unlabored breathing Abdomen: soft, nontender, BS noted, no guarding non- distended. No organomegaly, no pulsatile masses, Skin: warm and dry, no visible lesions. Feels warm, clammy, no rashes, no lesions, no erythema MSK: ROM not assessed. no joint swelling noted, gait not assessed while in bed. Non tender calf or clubbing, no cyanosis/clubbing/ or edema Neuro: A&O, moves all extremities, no focal deficits, sensation intact Psych: Appropriate mood and behavior, normal speech Results 02/15/19 03:08 02/15/19 03:08 Lab Results 02/15/19 02/15/19 03:08 03:08 WBC 5.5 Hgb 13.4 Hct 40.5 Plt Count 236 Sodium 137 Potassium 4.7 Chloride 106 Carbon Dioxide 22 L BUN 15 Creatinine 0.89 Glucose 160 H Calcium 8.5 L Consult Discharge Plan - Plan Instructions: Fenofibrate (By mouth) Additional Instructions: RISK FACTORS: STOP SMOKING: If you smoke, STOP. Smoking or tobacco use significantly increases your risk of heart disease because nicotine causes the arteries to narrow or constrict. It also causes fats to stick to the artery. Your chances of having a heart attack are greatly increased if you continue to smoke. For more information, call the education line for smoking cessation 7-240-NDPTQME EAT A LOW FAT/CHOLESTEROL/SODIUM DIET: This diet may help reduce your chances of having a heart attack. LIFTING: Avoid lifting anything more than 10 pounds for 5-7 days Prior to straining, laughing, sneezing and/or coughing, apply manual pressure directly over insertion site. ACTIVITY: You may walk or climb stairs as tolerated You can resume sexual activity as tolerated In general, you are encouraged to engage in a minimum of 30 minutes or more of moderate intensity physical activity, such as brisk walking, daily or at least 3-4 times weekly BATHING Do not submerge the site into water (bath tub, hot tub, swimming pool) for 1 week. This can be a source for infection into the blood stream. You may shower after 24 hours SITE CARE: After 24 hours, you may remove the dressing and leave the site open to air. Keep the site clean and dry. Clean gently and pat dry. You can expect bruising and tenderness that gradually resolve within a week or two. Return to work as instructed per your physician Resume driving as instructed per physician Keep all scheduled follow up appointments Resume medications as instructed IMPORTANT: If prescribed a Platelet Aggregation Inhibitor such as, Plavix, Brilinta or Effient: Duration of therapy is minimum one year These medications are often used in combination with Aspirin in prevention of future heart attacks Never discontinue unless consult with your Newspaper Delivery Counselor STROKE (CVA) Risk factors for a stroke are: Age, cigarette smoking, diabetes, excessive alcohol consumption, family history, high blood pressure, overweight, physical inactivity, prior stroke, heart attack, diagnosis of carotid artery stenosis or other artery disease. Warning signs: Sudden numbness or weakness of the face, arm or leg; especially on one side of the body, sudden confusion, trouble speaking or understanding, sudden trouble seeing in one or both eyes, sudden trouble walking, dizziness, loss of balance or coordination, sudden severe headache with no cause. Call 911 or go to the Emergency Room. CONGESTIVE HEART FAILURE: If you have been diagnosed with Congestive Heart Failure (CHF) and your symptoms return, make an appointment with your physician Weigh yourself daily. Notify your physician if you have a weight gain of two or more pounds in one day or five or more pounds in one week. If you experience any difficulty breathing, please call 911 BLEEDING: Although the risk of bleeding is minimal, it can happen. If you have any bleeding from the site, apply firm pressure above the puncture site for 10-15 minutes. If the bleeding does not stop, continue manual pressure and call 911 Contact your physician if: You develop a fever greater than 101 degrees Fahrenheit Your site becomes reddened or has any drainage You have an increase in pain or burning at the site or if a large knot forms at the site. If you experience chest pain, shortness of breath, dizziness, or extreme tiredness, stop the activity and rest. Please notify your physicians office if you experience any of these symptoms and they are not relieved by rest please call 911! Referrals: Shima Stewart MD [Primary Care Provider] - 02/19/19 9:45 am (Follow up has been requested) Prescriptions: Fenofibrate [Tricor] 54 mg PO DAILY #30 tablet
== END 2019-02-15 11:25 | disposition home or self-care (01) ==
LOC: 3BNU 10:39 → EMEROOARM 10:39 → 3BNU 14:18
PROVIDERS: ADMIT Internal Medicine Nephrology; ATTEND Internal Medicine Nephrology